=== PATIENT | female | born 1940 | race Caucasian/White ===

== ENCOUNTER → 2016-11-21 | Outpatient (CLI) | payer MEDICARE ==
[~2016-11-21] MED LIST: CALCIUM + VITA1 EAC2 PO; CARAFATE1 GM PO; FEMARA 2.5 MG2.5 MG PO; PROTONIX40 MG PO; ZOFRAN4 MG PO
== END | disposition disaster alternative care site (69) ==
LOC: GBCOE 11-13 13:30
DX: Z12.31 Encounter for screening mammogram for malignant neoplasm of breast (principal); Z90.11 Acquired absence of right breast and nipple; Z85.3 Personal history of malignant neoplasm of breast
CPT/HCPCS: G0202

== ENCOUNTER → 2016-12-01 | Outpatient (CLI) | payer MEDICARE, SELFPAY | END | disposition disaster alternative care site (69) | LOC: GKIC 10:42 | DX: C50.919 Malignant neoplasm of unspecified site of unspecified female breast (principal); C79.51 Secondary malignant neoplasm of bone; C78.2 Secondary malignant neoplasm of pleura; R59.0 Localized enlarged lymph nodes | CPT/HCPCS: A9552 ==

== ENCOUNTER 2016-12-18 01:15 | Emergency (ER) | payer MEDICARE, OTHER ==
--- NOTE | ~2016-12-18 | ER ---
PATIENT'S NAME: JOSEMANUEL MARIAHA Tian [facility] AGE: 76 Y [address] ROOM: [place] [address] LOCATION: [facility] ADMIT DATE: 12/18/2016 ER/Outpatient Report DISCHARGE DATE: 12/18/2016 FAMILY PHYSICIAN: Abhay Good MD ATTENDING PHYSICIAN: Amarjit Ortiz Admission date and time are documented on the medical record. I saw the patient at 0130 hours. CHIEF COMPLAINT: Lightheadedness, dizziness, generalized weakness, and nausea. HISTORY OF PRESENT ILLNESS: This patient is a 76-year-old female who about an hour prior to admission in the emergency room which would have been close to midnight got up from bed to go to the bathroom, had a bowel movement, urinated, got out of the bathroom, took about 6 steps, and then got really weak, dizzy, and lightheaded. She just kind of went down to the floor. Did not lose consciousness. It sounds like she has a near syncopal episode. No syncope. No vertigo. No headache, eyes, ears, nose, throat, neck, or spine pain. No chest pain or shortness of breath. Some nausea, but no vomiting, diarrhea, or urinary frequency, urgency, or dysuria. No abdominal pain. No joint or muscle swelling, redness, or pain. No skin eruptions or rash. No history of neuro changes, CVA, TIA, or seizure disorder. No endocrine problems. Does have a history of anxiety, depression, but no psychosis. She is to see Dr. Swartz oncologist today for results of a lymph node biopsy. The patient does have a history of right breast cancer. She has underwent chemotherapy and radiation therapy. HOME MEDICATIONS: None. ALLERGIES: SULFA, MORPHINE. SOCIAL HISTORY: Nonsmoker, nondrinker. SIGNIFICANT PAST MEDICAL HISTORY: Breast cancer, anxiety, depression, remote tobacco abuse, and diverticulosis. OPERATIONS: Radiation therapy, chemotherapy, tonsillectomy, appendectomy, right mastectomy, exploratory laparotomy, colonoscopy, and urethral sling placement. REVIEW OF SYSTEMS: PATIENT'S NAME: JOSEMANUEL MARIAHA Tian [facility] AGE: 76 Y [address] ROOM: [place] [address] LOCATION: ED ADMIT DATE: 12/18/2016 ER/Outpatient Report DISCHARGE DATE: 12/18/2016 FAMILY PHYSICIAN: Abhay Good MD ATTENDING PHYSICIAN: Amarjit Ortiz All systems reviewed by me are negative with the exception of those discussed in the history of present illness. PHYSICAL EXAMINATION: VITAL SIGNS: Temperature 98.7, tympanic, pulse 83, regular, respirations 16, blood pressure 122/60, and O2 sat on room air is 99%. HEAD: Normocephalic. EYES: Extraocular muscles intact. PERRL. Sclerae and conjunctivae clear, nonicteric. No nystagmus. EARS: Clear TMs bilaterally. NOSE AND THROAT: Clear. Mucous membranes moist. NECK: No nuchal rigidity. No thyromegaly or cervical adenopathy. No carotid bruits. No tenderness. SPINE: Negative. LUNGS: Clear. Good airflow. No rales, rhonchi, or wheezes. HEART: Regular. Pulses are palpable. No chest wall or ribcage pain to palpation. ABDOMEN: Soft, flat, nondistended, nontender. Good bowel tones. No organomegaly or abnormal mass palpable. No CVA tenderness. EXTREMITIES: Without peripheral edema, cyanosis, or deformity. NEUROVASCULAR: Intact. No lateralizing weakness, numbness, tingling, or loss of function. VASCULAR: Intact. SKIN: Clear. No skin eruptions or rash. IMAGING DATA: EKG showed sinus rhythm. No acute ST-elevation, ischemic change, or arrhythmia. Chest x-ray showed no acute infiltrate or changes. We will review x-ray with Radiology. CT scan of the head showed no intracranial bleed or mass effect. There was ill-defined hypodensity in the inferior right cerebellar hemisphere. Radiologist questioned infarct. MRI was performed that showed no evidence of infarct. CT scan results, MRI results were read by Radiology, see dictated transcribed reports. LABORATORY DATA: Hiuot-sg-tqgs cardiac enzymes were normal x2, 2 hours apart. CPK was normal x2, 2 hours apart. CMS was normal except for slightly elevated glucose 106, magnesium was 2, and procalcitonin was less than 0.05. Lactate was 1.1. Thyroid was normal. CRP was 0.61. Pro-BNP was 253. Urinalysis showed 5-10 whites, negative reds, 5-10 epithelial cells, few bacteria per high-power field, negative nitrites on dipstick. CBC showed a white count of 8000, 62 segs, 28 lymphs, 7 monos, 2 eos, hemoglobin was 12.7, hematocrit 38.2, and platelet count is 236,000. Sed rate is 29, PTT was 35, pro-time is 10.5 with an INR 1.0. D-dimer was 0.97. PATIENT'S NAME: SILVER MARIA I [facility] AGE: 76 Y [address] ROOM: [place] [address] LOCATION: [facility] ADMIT DATE: 12/18/2016 ER/Outpatient Report DISCHARGE DATE: 12/18/2016 FAMILY PHYSICIAN: Abhay Good MD ATTENDING PHYSICIAN: Amarjit Ortiz EMERGENCY DEPARTMENT COURSE: I did start the patient on IV normal saline, fluids. Gave her Zofran for nausea. IMPRESSION: 1. Near-syncopal episode with generalized weakness. No neurological changes. No evidence of infarct on MRI scan. 2. History of breast cancer, recently had lymph node biopsy, awaiting results. The patient did undergo chemotherapy and radiation therapy. 3. Anxiety and depression. 4. Remote tobacco abuse. PLAN: The patient was given IV normal saline, fluids. Discharged home. Observation. Activity as tolerated. Continue present home medications and care. Fluids, diet as tolerated. Rest. Avoid sudden positional changes. Follow up with personal physician as needed or as scheduled. Discussion ensued with the patient and her family in regard to my findings and recommendations, they understand. AMARJIT ORTIZ MD SDS/modl /[id number] d: 12/18/16 0545 t: 12/20/16606, OUTPATIENT REPORT
--- NOTE | ~2016-12-18 | ER ---
PATIENT'S NAME: SILVER MARIA I [facility] AGE: 76 Y [address] ROOM: [place] [address] LOCATION: [facility] ADMIT DATE: 12/18/2016 ER/Outpatient Report DISCHARGE DATE: 12/18/2016 FAMILY PHYSICIAN: Abhay Good MD ATTENDING PHYSICIAN: Amarjit Pierce CORRECTED PATIENT ACCOUNT INFORMATION 12/22/16 AO Silver Maria is a 76-year-old female who was seen last night in the emergency room at 0130 hours with lightheadedness, dizziness, generalized weakness, and nausea. Dr. Jensen called with a Radiology over-read this morning. She said she had a head CT without contrast, showing a right cerebellar lesion. With her history of breast cancer, an MRI was obtained last night without contrast. There is a discrepancy with overnight preliminary report which characterized this abnormality as most likely chronic. It is indeterminate and needs postcontrast MRI imaging to further clarify. With her history, at this point diagnosis of exclusion is metastatic disease. I did attempt to contact the patient, she did not answer. I let her primary care physician, Dr. Good know as well as Dr. Swartz, her oncologist. The report was faxed to both of their clinics and Dr. Swartz was just about to see Silver in the clinic, so she was updated with this discrepancy and recommendations for postcontrast imaging. MARYLOU PITT MD CAR/modl /[id number] CORRECTED PATIENT ACCOUNT INFORMATION 12/22/16 AO d: 12/18/162013 t: 12/23/16 0649, OUTPATIENT REPORT
[2016-12-18 01:48] LABS: BASOPHIL % 0.4 %; EOSINOPHIL # 0.2 K/uL (0.0-0.5); HEMATOCRIT 38.2 % (33.0-46.0); HEMOGLOBIN 12.7 g/dL (10.0-15.0); IMMATURE GRANULOCYTE % 0.4 %; LYMPHOCYTE # 2.2 K/uL (0.8-4.0); LYMPHOCYTE % 27.6 %; MCH 31.1 pg (27.0-34.0); MCHC 33.2 gm/dL (32.0-36.5); MCV 93.4 fl (83.0-98.0); MONOCYTE # 0.6 K/uL (0.0-1.0); MONOCYTE % 7.2 %; MPV 9.1 fl (9.4-12.4); NEUTROPHIL % 62.4 %; NRBC % 0 /100WBC (0-0.00); PLATELET COUNT 236 K/uL (150-450); RBC 4.09 M/uL (3.50-5.50); RDW-CV 13.4 % (11.9-14.6)
[2016-12-18 01:58] LABS: PROTIME 10.5 SECONDS (9.8-11.4); PTT 35 SECONDS (25-32)
[2016-12-18 02:06] LABS: BILIRUBIN URINE NEGATIVE (NEGATIVE); BLOOD URINE NEGATIVE /UL (NEGATIVE); GLUCOSE URINE NEGATIVE (NEGATIVE); KETONE URINE NEGATIVE (NEGATIVE); LEUKOCYTES URINE 100 /UL (NEGATIVE); NITRITE URINE NEGATIVE (NEGATIVE); PROTEIN URINE NEGATIVE (NEGATIVE); UROBILINOGEN URINE NORMAL (NORMAL)
[2016-12-18 02:07] LABS: COLOR URINE YELLOW (YELLOW); TURBIDITY URINE CLEAR (CLEAR)
[2016-12-18 02:11] LABS: ALBUMIN 3.6 gm/dL (3.5-5.0); ALK PHOS 76 IU/L (33-138); ALT 12 IU/L (12-78); ANION GAP 11.1 (10.0-19.0); AST 18 IU/L (10-40); BLOOD UREA NITROGEN 15 mg/dL (6-24); CALCIUM 9.4 mg/dL (8.5-10.5); CHLORIDE 106 mMol/L (96-110); CO2 27 mMol/L (22-32); CPK 44 IU/L (21-215); CREATININE 0.8 mg/dL (0.5-1.1); ESTIMATED GFR (MDRD EQUATION) > 60; POTASSIUM 4.1 mMol/L (3.7-5.1); SODIUM 140 mMol/L (135-145); TOTAL BILIRUBIN 0.4 mg/dL (0.0-1.5); TOTAL PROTEIN 7.5 g/dL (6.0-8.4)
[2016-12-18 02:20] LABS: BACTERIA URINE FEW (NEGATIVE); RBC URINE NEGATIVE #/HPF (NEGATIVE)
[2016-12-18 04:10] LABS: CPK 44 IU/L (21-215)
[2017-03-17] MEDS ORDERED: FEMARA 2.5 MG2.5 MG PO (15:26)
[2017-03-17] MEDS ORDERED: ZOFRAN4 MG PO (15:26)
[2017-03-17] MEDS ORDERED: CALCIUM + VITA1 EAC2 PO (15:28)
[2017-03-18] MEDS ORDERED: PROTONIX40 MG PO (12:59)
[2017-03-18] MEDS ORDERED: CARAFATE1 GM PO (13:01)
== END 2016-12-18 04:27 | disposition disaster alternative care site (69) ==
LOC: GMED 01:15
PROVIDERS: Emergency Medicine
DX: R55 Syncope and collapse (principal); R53.1 Weakness; F41.9 Anxiety disorder, unspecified; F32.9 Major depressive disorder, single episode, unspecified; Z88.2 Allergy status to sulfonamides; Z88.8 Allergy status to other drugs, medicaments and biological substances; Z90.89 Acquired absence of other organs; Z90.11 Acquired absence of right breast and nipple
CPT/HCPCS: J2405; J7030

== ENCOUNTER → 2016-12-18 | Outpatient (CLI) | payer MEDICARE, SELFPAY | END | disposition disaster alternative care site (69) | LOC: GRAD 15:54 | DX: C79.51 Secondary malignant neoplasm of bone (principal); C79.31 Secondary malignant neoplasm of brain; R59.0 Localized enlarged lymph nodes; G93.6 Cerebral edema; Z85.3 Personal history of malignant neoplasm of breast | CPT/HCPCS: A9577 ==

== ENCOUNTER 2017-03-15 15:53 | Emergency (ER) | payer MEDICARE ==
--- NOTE | ~2017-03-15 | ER ---
PATIENT'S NAME: SILVER MARIA I [facility] AGE: 76 Y [address] ROOM: [place] [address] LOCATION: [facility] ADMIT DATE: 03/15/2017 ER/Outpatient Report DISCHARGE DATE: 03/15/2017 FAMILY PHYSICIAN: Abhay Good MD ATTENDING PHYSICIAN: Luis Alberto Triplett HISTORY OF PRESENT ILLNESS: This patient is a 76-year-old female, comes in with nausea and vomiting. She has had decreased appetite over the past month. She does have a history of metastatic breast cancer, has undergone radiation and chemotherapy. The patient initially saw Dr. Trpilett on arrival here to the emergency room. See Dr. Triplett's dictation in regard to chief complaint, history of present illness, past medical history, physical exam, laboratory study results. Dr. Triplett, transferred the patient's care over to me at shift change. He asked me to follow up with the patient's CT scan of the abdomen and pelvis results, final diagnosis, and treatment plan. CT scan of the abdomen and pelvis was stable, had no acute changes, had no free air, free fluid. Lung bases were clear. She had sclerotic bone lesions that are unchanged. They are known from previous CT scans. She has no liver mets. She does have some scattered diverticuli, no diverticulitis, no bowel obstruction. CT scan was read by Radiology, see dictated transcribed report. IMPRESSION: 1. Nausea and vomiting with decreased appetite and weakness. 2. Metastatic breast cancer. PLAN: The patient dismissed home, observation, activity as tolerated. Fluids diet as tolerated. Continue home medications and care. Zofran either oral tabs or the ODT tabs for nausea and vomiting as needed. Follow up with personal physician in 2 to 3 days. Discussion ensued with the patient concerning my findings and recommendations, she understands. MD SUKUMAR GONZALES/modl /[id number] d: 03/16/17 0052 t: 07/10/17 1811, OUTPATIENT REPORT
--- NOTE | ~2017-03-15 | ER ---
PATIENT'S NAME: [facility] AGE: 76 Y [address] ROOM: [place] [address] LOCATION: ED ADMIT DATE: 03/15/2017 ER/Outpatient Report DISCHARGE DATE: 03/15/2017 FAMILY PHYSICIAN: Abhay Good MD ATTENDING PHYSICIAN: Raman Triplett Time of arrival: 1627 hours. Time of evaluation: 1635 hours. CHIEF COMPLAINT: Nausea, vomiting, and weakness. HISTORY OF PRESENT ILLNESS: The patient is a 76-year-old female, who presents to emergency department today with a chief complaint of nausea, vomiting, and weakness. She reports this started about 2 days prior to arrival. The patient does have a history of breast cancer with metastasis to the brain and bones. She is currently on chemo and radiation. She reports her last oral intake was at 7 o'clock this morning. She has had 3 episodes of vomiting. She does report some constipation, last bowel movement was a hard stool one day prior to arrival. Denies any fevers or chills. No urinary frequency, urgency, or painful urination. No diarrhea. The patient had poor appetite for this month. PAST MEDICAL HISTORY: Breast cancer, anxiety, depression, remote tobacco abuse, diverticulosis. PAST SURGICAL HISTORY: Radiation therapy, chemotherapy, tonsillectomy, appendectomy, right mastectomy, exploratory laparotomy, colonoscopy, urethral sling. SOCIAL HISTORY: The patient denies any tobacco, alcohol, or illicit drug use. ALLERGIES: TO SULFA. MEDICATIONS: Please see list. PRIMARY CARE DOCTOR: Abhay Good M.D. REVIEW OF SYSTEMS: All systems are reviewed by myself and are negative with the exception of those discussed in HPI and past medical history. PATIENT'S NAME: [facility] AGE: 76 Y [address] ROOM: [place] [address] LOCATION: [facility] ADMIT DATE: 03/15/2017 ER/Outpatient Report DISCHARGE DATE: 03/15/2017 FAMILY PHYSICIAN: Abhay Good MD ATTENDING PHYSICIAN: Raman Triplett PHYSICAL EXAMINATION: VITAL SIGNS: Weight 51.7 kg, blood pressure 110/69, pulse 84, respiratory rate 20, temperature 98.2, oxygen saturation 97% on room air. GENERAL: The patient is a 76-year-old female, appears older than stated age, she is thin. HEENT: Normocephalic, atraumatic. Pupils are equal, round, and reactive to light and accommodation. Extraocular motions are intact. Nares are patent bilaterally. Mucous membranes are dry. NECK: Supple. There is no nuchal rigidity. CARDIOVASCULAR: Regular rate and rhythm. No murmurs, rubs, or gallops. LUNGS: Clear to auscultation bilaterally. No wheezes, rales, or rhonchi. ABDOMEN: Soft, nontender, and nondistended. No rebound, rigidity, or guarding. Positive bowel sounds. MUSCULOSKELETAL: The patient moves all 4 extremities. SKIN: Warm and dry. LABORATORY DATA AND X-RAYS: CBC is unremarkable. Coags are normal. Lactate is normal. Procalcitonin is less than 0.5. CMP is normal. LFTs are normal. Amylase is normal. Lipase is normal. Urinalysis shows 500 leukocyte esterase, negative nitrites, 30 protein, 10 blood, full field wbc's, negative rbc's, 20-50 epithelials, many bacteria, does appear to be contaminated. IMPRESSION: 1. Nausea and vomiting. 2. Breast cancer with metastasis. 3. Initial visit. EMERGENCY DEPARTMENT COURSE: The patient was brought back to the examination room. Seen and evaluated by myself. IV is established. Laboratory analysis and imaging are obtained, as described above. The patient is given a liter of normal saline as well as 4 mg of Zofran IV. I discussed the results of laboratory analysis with the patient. A CT scan of the abdomen and pelvis is pending at this time. I have discussed the case with Dr. Pierce. At shift change, a transfer of care was made. Dr. Pierce will follow up on the CT scan of the abdomen and pelvis. DISPOSITION: Per Dr. Pierce. RAMAN TRIPLETT DO PATIENT'S NAME: SILVER MARIA I [facility] AGE: 76 Y [address] ROOM: [place] [address] LOCATION: ED ADMIT DATE: 03/15/2017 ER/Outpatient Report DISCHARGE DATE: 03/15/2017 FAMILY PHYSICIAN: Abhay Good MD ATTENDING PHYSICIAN: Raman Triplett/drew /[id number] d: 03/18/17818 t: 03/23/172032, OUTPATIENT REPORT
[2017-03-15 17:03] LABS: BASOPHIL % 0.6 %; EOSINOPHIL # 0.1 K/uL (0.0-0.5); EOSINOPHIL % 2.9 %; HEMATOCRIT 41.3 % (33.0-46.0); IMMATURE GRANULOCYTE % 0.4 %; MCH 32.3 pg (27.0-34.0); MCHC 33.9 gm/dL (32.0-36.5); MCV 95.2 fl (83.0-98.0); MONOCYTE # 0.5 K/uL (0.0-1.0); MONOCYTE % 10.6 %; MPV 8.9 fl (9.4-12.4); NEUTROPHIL # (ANC) 2.2 K/uL (1.8-7.8); NEUTROPHIL % 45.5 %; NRBC % 0 /100WBC (0-0.00); PLATELET COUNT 215 K/uL (150-450); RBC 4.34 M/uL (3.50-5.50); RDW-CV 13.6 % (11.9-14.6); WBC 4.9 K/uL (4.0-11.0)
[2017-03-15 17:13] LABS: INR - (THERAPEUTIC) 1.01 (0.92-1.07); PROTIME 10.6 SECONDS (9.8-11.4); PTT 32 SECONDS (25-32)
[2017-03-15 17:24] LABS: ALBUMIN 3.5 gm/dL (3.5-5.0); ALK PHOS 50 IU/L (33-138); ALT 16 IU/L (12-78); ANION GAP 11.8 (10.0-19.0); AST 18 IU/L (10-40); BLOOD UREA NITROGEN 13 mg/dL (6-24); CALCIUM 9.4 mg/dL (8.5-10.5); CHLORIDE 109 mMol/L (96-110); CO2 26 mMol/L (22-32); CREATININE 0.8 mg/dL (0.5-1.1); ESTIMATED GFR (MDRD EQUATION) > 60; POTASSIUM 3.8 mMol/L (3.7-5.1); SODIUM 143 mMol/L (135-145)
[2017-03-15 17:25] LABS: TOTAL BILIRUBIN 0.6 mg/dL (0.0-1.5)
[2017-03-15 17:27] LABS: BLOOD URINE 10 /UL (NEGATIVE); COLOR URINE YELLOW (YELLOW); GLUCOSE URINE NEGATIVE (NEGATIVE); KETONE URINE 5 mg/dL (NEGATIVE); LEUKOCYTES URINE 500 /UL (NEGATIVE); NITRITE URINE NEGATIVE (NEGATIVE); PROTEIN URINE 30 mg/dL (NEGATIVE); SPEC GRAVITY URINE 1.025 (1.003-1.035); TURBIDITY URINE 3+ (CLEAR); UROBILINOGEN URINE 1 mg/dL (NORMAL)
[2017-03-15 17:36] LABS: WBC URINE FULL FIELD #/HPF (NEGATIVE)
[2017-03-15 17:37] LABS: BACTERIA URINE MANY (NEGATIVE); EPITHELIAL URINE 20-50 #/HPF (NEGATIVE); MUCUS URINE 1+ (NEGATIVE); RBC URINE NEGATIVE #/HPF (NEGATIVE)
[2017-03-17] MEDS ORDERED: FEMARA 2.5 MG2.5 MG PO (15:26)
[2017-03-17] MEDS ORDERED: ZOFRAN4 MG PO (15:26)
[2017-03-17] MEDS ORDERED: CALCIUM + VITA1 EAC2 PO (15:28)
[2017-03-18] MEDS ORDERED: PROTONIX40 MG PO (12:59)
[2017-03-18] MEDS ORDERED: CARAFATE1 GM PO (13:01)
== END 2017-03-15 19:19 | disposition disaster alternative care site (69) ==
LOC: GMED 15:53
PROVIDERS: Emergency Medicine
DX: R11.2 Nausea with vomiting, unspecified (principal); R63.0 Anorexia; R53.1 Weakness; C50.911 Malignant neoplasm of unspecified site of right female breast; F41.9 Anxiety disorder, unspecified; Z88.2 Allergy status to sulfonamides; Z79.818 Long term (current) use of other agents affecting estrogen receptors and estrogen levels; Z90.49 Acquired absence of other specified parts of digestive tract; Z90.89 Acquired absence of other organs; Z90.11 Acquired absence of right breast and nipple
CPT/HCPCS: J2405; J7030; Q9967

== ENCOUNTER → 2017-03-18 | Day surgery (SDC) | payer MEDICARE ==
[~2017-03-18] VITALS: Ht 167.6 cm; Wt 53.1 kg
== END | disposition disaster alternative care site (69) ==
LOC: GPOC 03-17 14:00 → GEND 08:35 → GPOC 14:00
PROC: 0DB68ZX Excision of Stomach, Via Natural or Artificial Opening Endoscopic, Diagnostic (ICD-10-PCS; principal; 2017-03-18)
DX: K29.50 Unspecified chronic gastritis without bleeding (principal); M19.90 Unspecified osteoarthritis, unspecified site; K21.9 Gastro-esophageal reflux disease without esophagitis; F32.9 Major depressive disorder, single episode, unspecified; C79.31 Secondary malignant neoplasm of brain; F41.9 Anxiety disorder, unspecified; Z85.3 Personal history of malignant neoplasm of breast; Z90.11 Acquired absence of right breast and nipple; Z90.49 Acquired absence of other specified parts of digestive tract; Z90.710 Acquired absence of both cervix and uterus; Z98.890 Other specified postprocedural states; Z79.899 Other long term (current) drug therapy; Z88.1 Allergy status to other antibiotic agents
CPT/HCPCS: J2001; J2405; J7030

== ENCOUNTER → 2017-04-24 | Outpatient (CLI) | payer MEDICARE | END | disposition disaster alternative care site (69) | LOC: GRAD 08:06 | DX: C50.919 Malignant neoplasm of unspecified site of unspecified female breast (principal); C79.51 Secondary malignant neoplasm of bone; R59.0 Localized enlarged lymph nodes; I95.1 Orthostatic hypotension; Z90.11 Acquired absence of right breast and nipple; K57.30 Diverticulosis of large intestine without perforation or abscess without bleeding | CPT/HCPCS: Q9967 ==

== ENCOUNTER → 2017-04-29 | Outpatient (CLI) | payer MEDICARE | END | disposition disaster alternative care site (69) | LOC: GRAD 04-28 10:00 | DX: C50.919 Malignant neoplasm of unspecified site of unspecified female breast (principal); C79.51 Secondary malignant neoplasm of bone; I95.1 Orthostatic hypotension; R59.0 Localized enlarged lymph nodes | CPT/HCPCS: A9503 ==